=== PATIENT | male | born 1995 | race Caucasian/White ===

== ENCOUNTER 2017-03-23 14:14 | Inpatient (IN) | payer MEDICAID ==
[~2017-03-23] VITALS: Ht 180.3 cm; Wt 67.6 kg
--- NOTE | 2017-03-23 15:10 | NUR ---
RN NOTES PT WAS BROUGHT TO FLOOR BY EMT'S FROM [place]. PT IS ALERT AND ORIENTED, ON RA, RESPIRATIONS ARE EVEN AND UNLABORED. PT ABLE TO AMBULATE TO BED INDEPENDENTLY. IV ON RAC INTACT AND SL. VITAL SIGNS ARE WNL, NO SIGNS OF DISTRESS NOTED. SAFETY MEASURES ARE IN PLACE, CALL LIGHT IS IN REACH. WILL CONTINUE TO MONITOR.
[2017-03-23 15:15] VITALS: BP 109/50
[2017-03-23] MEDS ORDERED: ZOLPIDEM TARTRATE 5 MG TABLET PO PRN (16:00)
[2017-03-23] MEDS ORDERED: MAG HYDROX/AL HYDROX/SIMETH 30 ML UDC PO PRN (16:00)
[2017-03-23] MEDS ORDERED: MAGNESIUM HYDROXIDE 30 ML UDC PO PRN (16:00)
[2017-03-23] MEDS: IV D5/ 0.9% NACL 1,000 ML IV PRN (16:00)
[2017-03-23] MEDS ORDERED: Z GUARD REMEDY 2 OZ OINT TP PRN (16:00)
[2017-03-23] MEDS ORDERED: ONDANSETRON HCL/PF 4 MG/2 ML VIAL IVP PRN (16:00)
[2017-03-23] MEDS ORDERED: ACETAMINOPHEN 325 MG TABLET PO PRN (16:00)
[2017-03-23] MEDS ORDERED: HYDROCODONE/APAP 5/325MG 1 EACH TABLET PO PRN (16:00)
[2017-03-23] MEDS ORDERED: HYDROMORPHONE INJ 0.5 MG/0.5 ML SYRINGE IV PRN (16:30)
--- NOTE | 2017-03-23 18:41 | NUR ---
RN NOTES PT IS LAYING DOWN IN BED, RESTING COMFORTABLY. PT ON RA, RESPIRATIONS ARE EVEN AND UNLABORED. IV ON LAC INTACT AND PATENT, RUNNING D5NS @ 100ML/HR. ABDOMINAL ULTRASOUND DONE TODAY, WAITING FOR REPORT. PER DR. BYRNE, PT CAN START CLEAR LIQUIDS IF ULTRASOUND COMES BACK NORMAL. SAFETY MEASURES ARE IN PLACE, CALL LIGHT IS IN REACH. WILL ENDORSE TO ROADABILITY MACHINE OPERATOR RN FOR CONTINUITY OF CARE.
--- NOTE | 2017-03-23 19:45 | NUR ---
MS/RN NOTES RECEIVED PT IN BED, STABLE CONDITION. A&OX4. BREATHING EVENLY ON RA. L AC IV #20G, CONTINUED D5 NS @ 100 ML/HR. TOLERATING CLEAR DIET. C/O HIS STOMACH IS HURTING BECAUSE HE WANTS TO EAT. INSTRUCTED WILL ADVANCE DIET. NO COMPLAINTS OF N/V. VERBALIZED UNDERSTANDING OF PLAN OF CARE INCLUDING BLOOD DRAWN AND CXR IN AM. NO OTHER CONCERNS MADE. FAMILY AT BEDSIDE. PATIENT STABLE. BED AT LOWEST POSITION AND LOCKED, SR X2 UP. CALL COHN AND SIDE TABLE WITHIN REACH. WILL CONTINUE TO MONITOR.
[2017-03-23 20:00] VITALS: BP_SYST 121; BP_SYST 126; BP_DIAS 45; BP_DIAS 49
[2017-03-24] MEDS: IV D5/ 0.9% NACL 1,000 ML IV PRN (05:54)
--- NOTE | 2017-03-24 06:52 | NUR ---
MS/RN NOTES NO SIGNIFICANT CHANGES. A&O4. REFUSED IVF EARLY THIS MORNING STARTING @ 0500. TOLERATED CLEAR LIQUID DIET. PT STATES HE ALSO ATE CHICKEN SOUP WITH RICE AND CARROTS FROM HOME. NO N/V. NO COMPLAINTS OF PAIN. STATES HE FELT BETTER AFTER EATING. NO DISTRESS NOTED. ALL NEEDS MET. CALL COHN WITHIN REACH. WILL ENDORSE TO AM SHIFT FOR CONTINUITY OF CARE.
[2017-03-24 07:30] LABS: BASOPHILS % (AUTO) 0.4 % (0.0-2.0); EOSINOPHILS # (AUTO) 0.1 /CMM (0.0-0.7); EOSINOPHILS % (AUTO) 1.4 % (0.0-6.0); HEMATOCRIT 39 % (39-51); HEMOGLOBIN 13.6 g/dL (13.5-17.5); LYMPHOCYTES # (AUTO) 2.3 /CMM (0.8-4.8); LYMPHOCYTES % (AUTO) 28.2 % (20.0-44.0); MEAN CORPUSCULAR HEMOGLOBIN 31 PG (26.0-33.0); MEAN CORPUSCULAR HGB CONC 34 g/dl (31.0-36.0); MEAN CORPUSCULAR VOLUME 89 fL (80-96); MONOCYTES # (AUTO) 0.5 /CMM (0.1-1.30); MONOCYTES % (AUTO) 5.8 % (2.0-12.0); NEUTROPHILS # (AUTO) 5.3 /CMM (1.8-8.9); NEUTROPHILS % (AUTO) 64.2 % (43.0-81.0); PLATELET COUNT (AUTO) 222 /CMM (150-450); RDW COEFFICIENT OF VARIATION 12.8 (11.5-15.0); RED BLOOD CELL COUNT(AUTO) 4.44 MIL/uL (4.5-6.0); WHITE BLOOD COUNT (AUTO) 8.3 K/uL (4.3-11.0)
--- NOTE | 2017-03-24 07:30 | NUR ---
RN OPENING NOTES RECEIVED PATIENT IN BED RESTING, NO ACUTE DISTRESS NOR SOB NOTED. NO COMPLAINTS OF PAIN OR DISCOMFORT. IV SITE INTACT AND PATENT. SAFETY MEASURES IN PLACE. CALL LIGHT WITHIN REACH. WILL MONIOTR ACCORDINGLY.
[2017-03-24 07:53] LABS: ALBUMIN 3.3 g/dL (3.4-5.0); BILIRUBIN,TOTAL 1.4 mg/dL (0.2-1.0); CALCIUM, SERUM 8.4 mg/dL (8.5-10.1); CREATININE 1.1 mg/dL (0.6-1.3); MAGNESIUM 1.8 mg/dL (1.8-2.4); PHOSPHORUS 2.9 mg/dL (2.5-4.9); POTASSIUM 3.6 mmol/L (3.5-5.1); TOTAL PROTEIN, SERUM 6.6 g/dL (6.4-8.2)
[2017-03-24 08:00] VITALS: BP 109/59
--- NOTE | 2017-03-24 13:15 | NUR ---
BARREL RIBS SOLDERER NOTES DISCHARGED PATIENT IN STABLE CONDITION ACCOMPANIED BY FAMILY AND RNMARI. DISCHARGE INSTRUCTIONS GIVEN, VERBALIZED UNDERSTANDING, PAPERWORK GIVEN. BELONGINGS RETURNED, FORM SIGNED. D/C IV, APPLIED PRESSURE, NO BLEEDING, NO COMPLICATIONS. REMOVED NAME BAND.
== END 2017-03-24 13:30 | disposition home or self-care (01) | DRG 249 ==
LOC: MED 14:56
PROVIDERS: ADMIT Internal Medicine; ATTEND Internal Medicine
DX: K52.9 Noninfective gastroenteritis and colitis, unspecified (principal); F17.200 Nicotine dependence, unspecified, uncomplicated
CPT/HCPCS: 36415; 71045-TC; 76700-TC; 80053-TC; 80061-TC; 81000-TC; 82150-TC; 82553-TC; 83605-TC; 83690-TC; 83735-TC; 84100-TC; 85025-TC; 87040-TC; 87081-TC; 87086-TC; 93307-TC; J7042